=== PATIENT | female | born 1985 | race Caucasian/White ===

== ENCOUNTER 2017-06-03 09:05 | Inpatient (IN) | payer SELFPAY ==
[2017-06-03 09:44] VITALS: BMI 31.1
--- NOTE | 2017-06-03 13:11 | HP ---
CIWA Score - CIWA Score Nausea/Vomitin-Int. Nausea w/Dry Heave Muscle Tremors: 2 Anxiety: 4-Mod. Anxious/Guarded Agitation: 4-Moderately Restless Paroxysmal Sweats: 1-Minimal Palms Moist Orientation: 0-Oriented Tacttile Disturbances: 3-Moderate Itch/Numb/Burn Auditory Disturbances: 0-None Visual Disturbances: 0-None Headache: 2-Mild CIWA-Ar Total Score: 20 Admission ROS BHS - HPI Chief Complaint: WITHDRAWAL SX FROM ALCOHOL Allergies/Adverse Reactions: Allergies Allergy/AdvReac Type Severity Reaction Status Date / Time No Known Allergies Allergy Verified 06/03/17 10:36 History of Present Illness: 32 Y/O FEMALE WITH A HX OF ALCOHOL AND COCAINE DEPENDENCE SEEKING DETOX [place]. FIRST TIME HERE. Exam Limitations: No Limitations - Ebola screening Have you traveled outside of the country in the last 21 days: No Have you had contact with anyone from an Ebola affected area: No Have you been sick,other than usual withdrawal symptoms: No - Review of Systems Constitutional: Chills, Loss of Appetite, Night Sweats EENT: reports: Nose Congestion GI: reports: Constipated, Diarrhea, Nausea, Poor Appetite, Poor Fluid Intake, Vomiting : reports: No Symptoms Reported Musculoskeletal: reports: No Symptoms Reported Integumentary: reports: No Symptoms Reported Neuro: reports: Headache, Tremors, Dizziness Endocrine: reports: No Symptoms Reported Hematology: reports: No Symptoms Reported Psychiatric: reports: Orientated x3, Anxious, Depressed Other Systems: Reviewed and Negative Patient History - Patient Medical History Hx Anemia: No Hx Asthma: Yes (On Albuterol inhaler) Hx Hypertension: Yes (NEVER ON BP MED) Hx Hypercholesterolemia: No HX Cerebrovascular Accident: No Hx Seizures: No Hx Diabetes: Yes (Gestational diabetes) Hx Gastrointestinal Disorders: Yes (Gallstones) Hx Genitourinary Disorders: No Hx Sexually Transmitted Disorders: No Hx Renal Disease (ESRD): No Hx Thyroid Disease: No Hx Human Immunodeficiency Virus (HIV): No (NEGATIVE HX) Hx Hepatitis C: No Hx Depression: Yes (NOT CURRENTLY TAKING MED) Hx Suicide Attempt: No (DENIES) - Patient Surgical History Past Surgical History: No Hx Neurologic Surgery: No Hx Cataract Extraction: No Hx Cardiac Surgery: No Hx Lung Surgery: No Hx Breast Surgery: No Hx Breast Biopsy: No Hx Abdominal Surgery: No Hx Appendectomy: No Hx Cholecystectomy: Yes (GALLBLADDER TAKEN OUT 2011) Hx Genitourinary Surgery: No Hx Section: No Hx Orthopedic Surgery: No Hx Hysterectomy: No Anesthesia Reaction: No - PPD History Previous Implant?: Yes Documented Results: Negative w/o proof - Reproductive History Patient is a Female of Child Bearing Age (11 -55 yrs old): Yes Last Menstrual Period: 04/25/17 Patient : No - Smoking Cessation Smoking history: Current every day smoker Aproximately how many cigarettes per day: 10 Hx Chewing Tobacco Use: No Initiated information on smoking cessation: Yes 'Breaking Loose' booklet given: 06/03/17 - Substance & Tx. History Hx Alcohol Use: Yes (BEER/LOQUOR) Hx Substance Use: Yes (COCAINE) Substance Use Type: Alcohol, Cocaine Hx Substance Use Treatment: No (NEVER BEEN IN TREATMENT) - Substances Abused Alcohol Route: Oral Frequency: Daily Amount used: Vodka 3 pints, Beer 2 6pks Age of first use: 10 Date of Last Use: 06/02/17 Cocaine Route: Inhalation Frequency: 1-2 times per week Amount used: $200 Age of first use: 17 Date of Last Use: 06/02/17 Family Disease History - Family Disease History Family Disease History: Other: Father ( FROM DRUG OVERDOSE.), Mother ( HTN) Admission Physical Exam [facility] - Vital Signs Vital Signs: Vital Signs - 24 hr 06/03/17 09:41 Temperature 97.3 F L Pulse Rate 76 Respiratory 20 Rate Blood Pressure 171/118 - Physical General Appearance: Yes: Appropriately Dressed, Moderate Distress, Irritable, Anxious HEENTM: Yes: EOMI, Normocephalic, JOSE, Pharynx Normal Respiratory: Yes: Chest Non-Tender, Lungs Clear, Normal Breath Sounds, No Respiratory Distress Neck: Yes: No masses,lesions,Nodules, Supple, Trachea in good position Breast: Yes: Breast Exam Deferred Cardiology: Yes: Regular Rhythm, Regular Rate, S1, S2 Abdominal: Yes: Normal Bowel Sounds, Non Tender, Flat Genitourinary: Yes: Other (N/C) Back: Yes: Within Normal Limits Musculoskeletal: Yes: full range of Motion, Gait Steady Extremities: Yes: Normal Range of Motion, Non-Tender Neurological: Yes: 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 NML intact, Fully Oriented, Alert, Motor Strength 5/5 Integumentary: Yes: Dry, Warm Lymphatic: Yes: Within Normal Limits - Diagnostic (1) Alcohol dependence with uncomplicated withdrawal Current Visit: Yes Status: Acute (2) Cocaine dependence, uncomplicated Current Visit: Yes Status: Acute (3) History of asthma Current Visit: Yes Status: Chronic (4) Hypertension Current Visit: Yes Status: Chronic Qualifiers: Hypertension type: unspecified Qualified Code(s): I10 - Essential (primary ) hypertension Comment: NO CURRENT MEDS (5) Hx of gestational diabetes mellitus, not currently Current Visit: Yes Status: Resolved Cleared for Admission [facility] - Detox or Rehab [facility] Level of Care: Medically Managed Detox Regimen/Protocol: Librium [facility] Breath Alcohol Content Breath Alcohol Content: 0 Urine Pregancy Test - Result Urine Test Results: Negative- NO Line Present Urine Drug Screen - Results Drug Screen Negative: No Urine Drug Screen Results: THC-Marijuana, KANNAN-Cocaine, BZO-Benzodiazepines
[2017-06-03] MEDS ORDERED: LOPERAMIDE HCL 2 MG CAPSULE PO PRN (13:26)
[2017-06-03] MEDS ORDERED: ACETAMINOPHEN 325 MG TABLET (FP) PO PRN (13:26)
[2017-06-03] MEDS ORDERED: NICOTINE POLACRILEX 2 MG GUM BUC PRN (13:26)
[2017-06-03] MEDS ORDERED: P-EPHED 60MG/TRIPROLIDI 2.5MG TABLET PO PRN (13:26)
[2017-06-03] MEDS ORDERED: guaiFENesin/D-METHORPHAN HB 10 ML UNIT-DOSE CUPS PO PRN (13:26)
[2017-06-03] MEDS ORDERED: IBUPROFEN 400 MG TABLET (FP) PO PRN (13:26)
[2017-06-03] MEDS ORDERED: MAG HYDROX/AL HYDROX/SIMETH 30 ML UNIT-DOSE CUP PO PRN (13:26)
[2017-06-03] MEDS ORDERED: MAGNESIUM HYDROX 2400MG/30ML ORAL SUSPENSION 30 ML CUP PO PRN (13:26)
[2017-06-03] MEDS ORDERED: MAGNESIUM CITRATE 300 ML BOTTLE PO PRN (13:26)
[2017-06-03] MEDS ORDERED: MENTHOL/PHENOL 1 EACH UD MM PRN (13:26)
[2017-06-03] MEDS ORDERED: cloNIDine HCL 0.1 MG TABLET PO ONE (14:00)
[2017-06-03] MEDS ORDERED: chlordiazePOXIDE HCL 25 MG CAPSULE PO ONE (14:00)
[2017-06-03] MEDS: NICOTINE 14 MG/24 HOURS TOPICAL PATCH TD SCH (14:14)
--- NOTE | 2017-06-03 16:33 | CONSULT ---
[facility] Psychiatric Consult - Data Date of interview: 06/03/17 Admission source: [facility] Identifying data: Pt. is a 32 year old female, single, mother of one, and currently unemployed. This is patient's first admission to [facility]. Pt. admitted to for alcohol and cocaine dependence. Substance Abuse History: Following information confirmed with Ms. Delgado: Smoking Cessation. Smoking history: Current every day smoker. Aproximately how many cigarettes per day: 10. Hx Chewing Tobacco Use: No. Initiated information on smoking cessation: Yes. 'Breaking Loose' booklet given: . - Substance & Tx. History. Hx Alcohol Use: Yes (BEER/LOQUOR). Hx Substance Use: Yes (COCAINE). Substance Use Type: Alcohol, Cocaine. Hx Substance Use Treatment: No (NEVER BEEN IN TREATMENT). - Substances Abused. * * Alcohol. Route: Oral. Frequency: Daily. Amount used: Vodka 3 pints, Beer 2 6pks. Age of first use: 10. Date of Last Use: 06/02/17. Cocaine. Route: Inhalation. Frequency: 1-2 times per week. Amount used: $200. Age of first use: 17. Date of Last Use: 06/02/17 Medical History: Asthma, hypertension, Diabetes (gestational diabetes) Psychiatric History: Pt. denies h/o psychiatric hospitalization. Reports multiple failed trials of antidepressants. States in 2016 her PCP prescribed her wellbutrin and effexor but did not find medications effective. In 2017, patient saw an outpatient psychiatrist who prescribed her paxil 20mg but patient was medication noncompliant. Currently denies OPC and is refusing to restart paxil. Pt. reports a diagnosis of adjustment disorder. Pt. denies h/o suicide attempt. Physical/Sexual Abuse/Trauma History: Denies. Mental Status Exam - Mental Status Exam Alert and Oriented to: Time, Place, Person Cognitive Function: Good Patient Appearance: Well Groomed Mood: Euthymic Affect: Mood Congruent Patient Behavior: Appropriate, Cooperative Speech Pattern: Appropriate Voice Loudness: Normal Thought Process: Goal Oriented Thought Disorder: Not Present Hallucinations: Denies Suicidal Ideation: Denies Homicidal Ideation: Denies Insight/Judgement: Poor Sleep: Poorly Appetite: Fair Muscle strength/Tone: Normal Gait/Station: Normal Psychiatric Findings - Problem List ([place] 1, 2,3) (1) Insomnia Current Visit: Yes Status: Acute (2) Alcohol dependence with uncomplicated withdrawal Current Visit: Yes Status: Acute (3) Cocaine dependence, uncomplicated Current Visit: Yes Status: Acute - Initial Treatment Plan Initial Treatment Plan: Psychoeducation provided. Detoxification in progress. Ambien 10mg qhs prn ordered. Pt. reports favorable effect from previously taking ambien. Verbal consent given. Benefits and side effects (discussed). Will continue to monitor patient.
[2017-06-03] MEDS: chlordiazePOXIDE HCL 25 MG CAPSULE PO SCH ×2 (17:11→22:16)
[2017-06-03] MEDS ORDERED: ALBUTEROL SO4 0.083% IH SOL 2.5 MG/3 ML VIAL.NEB. NEB PRN (17:38)
[2017-06-03] MEDS: THIAMINE HCL 100 MG TABLET (FP) PO SCH (22:15)
[2017-06-03] MEDS: ZOLPIDEM TARTRATE 10 MG TABLET (PARK CARE ONLY) PO PRN (22:15)
[2017-06-03] MEDS: ALBUTEROL SO4 18 GM HFA INHALER IH PRN (22:17)
[2017-06-03 23:55] LABS: URINE APPEARANCE SLCLOUDY; URINE BILIRUBIN NEGATIVE (NEGATIVE); URINE BLOOD NEGATIVE (NEGATIVE); URINE COLOR AMBER; URINE GLUCOSE (UA) NEGATIVE (NEGATIVE); URINE KETONE TRACE (NEGATIVE); URINE LEUK ESTERASE NEGATIVE (NEGATIVE); URINE NITRITE NEGATIVE (NEGATIVE); URINE PROTEIN NEGATIVE (NEGATIVE)
[2017-06-04] MEDS: chlordiazePOXIDE HCL 25 MG CAPSULE PO SCH ×4 (06:03→22:22)
[2017-06-04] MEDS: ALBUTEROL SO4 18 GM HFA INHALER IH PRN ×3 (06:05→22:22)
--- NOTE | 2017-06-04 07:53 | EKG ---
Test Reason : Blood Pressure : / mmHG Vent. Rate : 070 BPM Atrial Rate : 070 BPM P-R Int : 130 ms QRS Dur : 088 ms QT Int : 426 ms P-R-T Axes : 017 058 041 degrees QTc Int : 460 ms NORMAL SINUS RHYTHM WITH SINUS ARRHYTHMIA NORMAL ECG WHEN COMPARED WITH ECG OF 23-NOV-2006 08:38, NO SIGNIFICANT CHANGE WAS FOUND Confirmed by CATE LORENZO, LAURA ([id number]) on 06/04/2017 7:53:33 AM Referred By: Confirmed By:LAURA ESPOSITO MD
[2017-06-04 10:24] LABS: CHLORIDE 101 mmol/L (98-107); POTASSIUM 3.5 mmol/L (3.5-5.1); SODIUM 140 mmol/L (136-145)
[2017-06-04 10:34] LABS: HEMATOCRIT 39.2 % (32.4-45.2); HEMOGLOBIN 12.6 GM/dL (10.7-15.3); MCH 30.1 pg (25.7-33.7); MEAN CELL VOLUME 93.9 fl (80-96); MEAN PLT VOLUME 7.6 fl (7.5-11.1); PLATELET COUNT 335 K/MM3 (134-434); RBC 4.18 M/mm3 (3.60-5.2); RDW 14.9 % (11.6-15.6); WHITE BLOOD COUNT 8.4 K/mm3 (4.0-10.0)
[2017-06-04 11:24] LABS: ALBUMIN 3.5 g/dl (3.4-5.0); ALK PHOS 98 U/L (45-117); ANION GAP 11 (8-16); BILIRUBIN,TOTAL 0.6 mg/dL (0.2-1.0); BLOOD UREA NITROGEN 8 mg/dL (7-18); CALCIUM 9.3 mg/dL (8.5-10.1); CO2 28 mmol/L (21-32); CREATININE 0.9 mg/dL (0.55-1.02); GLUCOSE,RANDOM 86 mg/dL (74-106); SGOT/AST 50 U/L (15-37); SGPT/ALT 69 U/L (12-78); TOT PROT 7.4 g/dl (6.4-8.2)
[2017-06-04] MEDS: PRENATAL VITAMINS W/ FOLIC ACID TABLET (FP) PO SCH (11:42)
[2017-06-04] MEDS: NICOTINE 14 MG/24 HOURS TOPICAL PATCH TD SCH (11:51)
--- NOTE | 2017-06-04 15:50 | PN ---
S CIWA - CIWA Score Nausea/Vomitin Muscle Tremors: 2 Anxiety: 2 Agitation: 2 Paroxysmal Sweats: 3 Orientation: 0-Oriented Tacttile Disturbances: 2-Mild Itch/Numbness/Burn Auditory Disturbances: 0-None Visual Disturbances: 0-None Headache: 0-None Present CIWA-Ar Total Score: 14 S Progress Note (SOAP) Subjective: IS, shakes, upset stomach,nausea Objective: 06/04/17 15:49 Vital Signs Temperature 97.7 F 06/04/17 13:22 Pulse Rate 90 06/04/17 13:22 Respiratory Rate 18 06/04/17 13:22 Blood Pressure 140/70 06/04/17 14:12 O2 Sat by Pulse Oximetry (%) Vital Signs Temperature 97.7 F 06/04/17 13:22 Pulse Rate 90 06/04/17 13:22 Respiratory Rate 18 06/04/17 13:22 Blood Pressure 140/70 06/04/17 14:12 O2 Sat by Pulse Oximetry (%) Laboratory Tests 06/03/17 06/04/17 06/04/17 20:45 05:45 05:45 WBC 8.4 RBC 4.18 Hgb 12.6 Hct 39.2 MCV 93.9 MCH 30.1 MCHC 32.0 RDW 14.9 D Plt Count 335 MPV 7.6 Sodium 140 Potassium 3.5 Chloride 101 Carbon Dioxide 28 Anion Gap 11 BUN 8 Creatinine 0.9 Creat Clearance w eGFR > 60 Random Glucose 86 Calcium 9.3 Total Bilirubin 0.6 AST 50 H ALT 69 Alkaline Phosphatase 98 Total Protein 7.4 Albumin 3.5 Urine Color Bernarda Urine Appearance Slcloudy Urine pH 5.0 Ur Specific [place] 1.025 Urine Protein Negative Urine Glucose (UA) Negative Urine Ketones Trace H Urine Blood Negative Urine Nitrite Negative Urine Bilirubin Negative Urine Urobilinogen 2.0 H Ur Leukocyte Esterase Negative RPR Titer 06/04/17 05:45 WBC RBC Hgb Hct MCV MCH MCHC RDW Plt Count MPV Sodium Potassium Chloride Carbon Dioxide Anion Gap BUN Creatinine Creat Clearance w eGFR Random Glucose Calcium Total Bilirubin AST ALT Alkaline Phosphatase Total Protein Albumin Urine Color Urine Appearance Urine pH Ur Specific [place] Urine Protein Urine Glucose (UA) Urine Ketones Urine Blood Urine Nitrite Urine Bilirubin Urine Urobilinogen Ur Leukocyte Esterase RPR Titer Nonreactive pt aox3 in nad ambulating Assessment: 06/04/17 15:49 withdrawal sx's Plan: cont detox increase fluids [place] prn
[2017-06-04] MEDS: THIAMINE HCL 100 MG TABLET (FP) PO SCH (22:22)
[2017-06-04] MEDS: hydrOXYzine PAMOATE 50 MG CAPSULE (FP) PO PRN (22:22)
[2017-06-04] MEDS: ZOLPIDEM TARTRATE 10 MG TABLET (PARK CARE ONLY) PO PRN (22:24)
[2017-06-05] MEDS: chlordiazePOXIDE HCL 25 MG CAPSULE PO SCH ×2 (05:58→11:02)
[2017-06-05] MEDS: NICOTINE 14 MG/24 HOURS TOPICAL PATCH TD SCH (11:02)
[2017-06-05] MEDS: PRENATAL VITAMINS W/ FOLIC ACID TABLET (FP) PO SCH (11:02)
--- NOTE | 2017-06-05 11:48 | PN ---
S CIWA - CIWA Score Nausea/Vomitin-No Nausea/No Vomiting Muscle Tremors: 3 Anxiety: 3 Agitation: 2 Paroxysmal Sweats: 1-Minimal Palms Moist Orientation: 0-Oriented Tacttile Disturbances: 0-None Auditory Disturbances: 0-None Visual Disturbances: 0-None Headache: 0-None Present CIWA-Ar Total Score: 9 BHS Progress Note (SOAP) Subjective: sweat anxiety tremor Objective: 06/05/17 11:47 Vital Signs Temperature 97.5 F L 06/05/17 09:50 Pulse Rate 74 06/05/17 09:50 Respiratory Rate 18 06/05/17 09:50 Blood Pressure 143/81 06/05/17 09:50 O2 Sat by Pulse Oximetry (%) Laboratory Last Values WBC 8.4 K/mm3 (4.0-10.0) 06/04/17 05:45 RBC 4.18 M/mm3 (3.60-5.2) 06/04/17 05:45 Hgb 12.6 GM/dL (10.7-15.3) 06/04/17 05:45 Hct 39.2 % (32.4-45.2) 06/04/17 05:45 MCV 93.9 fl (80-96) 06/04/17 05:45 MCH 30.1 pg (25.7-33.7) 06/04/17 05:45 MCHC 32.0 g/dl (32.0-36.0) 06/04/17 05:45 RDW 14.9 % (11.6-15.6) D 06/04/17 05:45 Plt Count 335 K/MM3 (134-434) 06/04/17 05:45 MPV 7.6 fl (7.5-11.1) 06/04/17 05:45 Sodium 140 mmol/L (136-145) 06/04/17 05:45 Potassium 3.5 mmol/L (3.5-5.1) 06/04/17 05:45 Chloride 101 mmol/L (98-107) 06/04/17 05:45 Carbon Dioxide 28 mmol/L (21-32) 06/04/17 05:45 Anion Gap 11 (8-16) 06/04/17 05:45 BUN 8 mg/dL (7-18) 06/04/17 05:45 Creatinine 0.9 mg/dL (0.55-1.02) 06/04/17 05:45 Creat Clearance w eGFR > 60 (>60) 06/04/17 05:45 POC Glucometer 95 UNITS (80-120) 06/04/17 16:56 Random Glucose 86 mg/dL (74-106) 06/04/17 05:45 Calcium 9.3 mg/dL (8.5-10.1) 06/04/17 05:45 Total Bilirubin 0.6 mg/dL (0.2-1.0) 06/04/17 05:45 AST 50 U/L (15-37) H 06/04/17 05:45 ALT 69 U/L (12-78) 06/04/17 05:45 Alkaline Phosphatase 98 U/L (45-117) 06/04/17 05:45 Total Protein 7.4 g/dl (6.4-8.2) 06/04/17 05:45 Albumin 3.5 g/dl (3.4-5.0) 06/04/17 05:45 Urine Color Bernarda 06/03/17 20:45 Urine Appearance Slcloudy 06/03/17 20:45 Urine pH 5.0 (5.0-8.0) 06/03/17 20:45 Ur Specific [place] 1.025 (1.001-1.035) 06/03/17 20:45 Urine Protein Negative (NEGATIVE) 06/03/17 20:45 Urine Glucose (UA) Negative (NEGATIVE) 06/03/17 20:45 Urine Ketones Trace (NEGATIVE) H 06/03/17 20:45 Urine Blood Negative (NEGATIVE) 06/03/17 20:45 Urine Nitrite Negative (NEGATIVE) 06/03/17 20:45 Urine Bilirubin Negative (NEGATIVE) 06/03/17 20:45 Urine Urobilinogen 2.0 mg/dL (0.2-1.0) H 06/03/17 20:45 Ur Leukocyte Esterase Negative (NEGATIVE) 06/03/17 20:45 RPR Titer Nonreactive (NONREACTIVE) 06/04/17 05:45 lab noted Assessment: 06/05/17 11:47 withdrawal sx Plan: continue detox
[2017-06-05] MEDS: chlordiazePOXIDE HCL 25 MG CAPSULE PO PRN (15:23)
[2017-06-05] MEDS: amLODIPine BESYLATE 5 MG TABLET (FP) PO SCH (15:23)
[2017-06-05] MEDS: chlordiazePOXIDE 5 MG CAPSULE PO SCH ×2 (17:03→22:24)
[2017-06-05] MEDS: ALBUTEROL SO4 18 GM HFA INHALER IH PRN (22:24)
[2017-06-05] MEDS: hydrOXYzine PAMOATE 50 MG CAPSULE (FP) PO PRN (22:24)
[2017-06-05] MEDS: ZOLPIDEM TARTRATE 10 MG TABLET (PARK CARE ONLY) PO PRN (22:24)
[2017-06-05] MEDS: THIAMINE HCL 100 MG TABLET (FP) PO SCH (22:24)
[2017-06-06] MEDS: chlordiazePOXIDE 5 MG CAPSULE PO SCH ×2 (05:23→10:49)
[2017-06-06] MEDS: PRENATAL VITAMINS W/ FOLIC ACID TABLET (FP) PO SCH (10:49)
[2017-06-06] MEDS: amLODIPine BESYLATE 5 MG TABLET (FP) PO SCH (10:49)
[2017-06-06] MEDS: NICOTINE 14 MG/24 HOURS TOPICAL PATCH TD SCH (10:49)
[2017-06-06] MEDS: hydrOXYzine PAMOATE 50 MG CAPSULE (FP) PO PRN ×3 (10:52→19:45)
[2017-06-06] MEDS: ALBUTEROL SO4 18 GM HFA INHALER IH PRN ×2 (10:52→22:33)
--- NOTE | 2017-06-06 11:03 | PN ---
BHS Progress Note (SOAP) Subjective: Sweating,interrupted sleep,restless Objective: 06/06/17 11:02 Vital Signs - 8 hr 06/06/17 06/06/17 06/06/17 03:30 07:41 09:43 Temperature 98.1 F 98.2 F Pulse Rate 75 81 Respiratory 18 18 18 Rate Blood Pressure 130/76 145/93 Laboratory Tests 06/03/17 06/04/17 06/04/17 20:45 05:45 05:45 WBC 8.4 RBC 4.18 Hgb 12.6 Hct 39.2 MCV 93.9 MCH 30.1 MCHC 32.0 RDW 14.9 D Plt Count 335 MPV 7.6 Sodium 140 Potassium 3.5 Chloride 101 Carbon Dioxide 28 Anion Gap 11 BUN 8 Creatinine 0.9 Creat Clearance w eGFR > 60 POC Glucometer Random Glucose 86 Calcium 9.3 Total Bilirubin 0.6 AST 50 H ALT 69 Alkaline Phosphatase 98 Total Protein 7.4 Albumin 3.5 Urine Color Bernarda Urine Appearance Slcloudy Urine pH 5.0 Ur Specific [place] 1.025 Urine Protein Negative Urine Glucose (UA) Negative Urine Ketones Trace H Urine Blood Negative Urine Nitrite Negative Urine Bilirubin Negative Urine Urobilinogen 2.0 H Ur Leukocyte Esterase Negative RPR Titer 06/04/17 06/04/17 05:45 16:56 WBC RBC Hgb Hct MCV MCH MCHC RDW Plt Count MPV Sodium Potassium Chloride Carbon Dioxide Anion Gap BUN Creatinine Creat Clearance w eGFR POC Glucometer 95 Random Glucose Calcium Total Bilirubin AST ALT Alkaline Phosphatase Total Protein Albumin Urine Color Urine Appearance Urine pH Ur Specific [place] Urine Protein Urine Glucose (UA) Urine Ketones Urine Blood Urine Nitrite Urine Bilirubin Urine Urobilinogen Ur Leukocyte Esterase RPR Titer Nonreactive labs noted Assessment: 06/06/17 11:02 Withdrawal sx. Plan: Continue detox
[2017-06-06] MEDS: chlordiazePOXIDE HCL 25 MG CAPSULE PO PRN (12:41)
[2017-06-06] MEDS: chlordiazePOXIDE HCL 10 MG CAPSULE PO SCH ×2 (18:20→22:32)
[2017-06-06] MEDS: THIAMINE HCL 100 MG TABLET (FP) PO SCH (22:32)
[2017-06-06] MEDS: ZOLPIDEM TARTRATE 10 MG TABLET (PARK CARE ONLY) PO PRN (22:32)
[2017-06-07] MEDS: chlordiazePOXIDE HCL 10 MG CAPSULE PO SCH (05:57)
[2017-06-07] MEDS: hydrOXYzine PAMOATE 50 MG CAPSULE (FP) PO PRN (05:59)
[2017-06-07 06:55] VITALS: BP 136/77; PULSE 70; TEMP 98.1
--- NOTE | 2017-06-07 14:41 | DS ---
[facility] Detox Discharge Summary Admission Date: 06/03/17 Discharge Date: 06/07/17 - History Present History: Alcohol Dependence, Cocaine Dependence Pertinent Past History: HTN - Physical Exam Results Vital Signs: Vital Signs Temperature 98.1 F 06/07/17 06:00 Pulse Rate 70 06/07/17 06:00 Respiratory Rate 18 06/07/17 06:00 Blood Pressure 136/77 06/07/17 06:00 O2 Sat by Pulse Oximetry (%) Pertinent Admission Physical Exam Findings: withdrawal sx. Laboratory Last Values WBC 8.4 K/mm3 (4.0-10.0) 06/04/17 05:45 RBC 4.18 M/mm3 (3.60-5.2) 06/04/17 05:45 Hgb 12.6 GM/dL (10.7-15.3) 06/04/17 05:45 Hct 39.2 % (32.4-45.2) 06/04/17 05:45 MCV 93.9 fl (80-96) 06/04/17 05:45 MCH 30.1 pg (25.7-33.7) 06/04/17 05:45 MCHC 32.0 g/dl (32.0-36.0) 06/04/17 05:45 RDW 14.9 % (11.6-15.6) D 06/04/17 05:45 Plt Count 335 K/MM3 (134-434) 06/04/17 05:45 MPV 7.6 fl (7.5-11.1) 06/04/17 05:45 Sodium 140 mmol/L (136-145) 06/04/17 05:45 Potassium 3.5 mmol/L (3.5-5.1) 06/04/17 05:45 Chloride 101 mmol/L (98-107) 06/04/17 05:45 Carbon Dioxide 28 mmol/L (21-32) 06/04/17 05:45 Anion Gap 11 (8-16) 06/04/17 05:45 BUN 8 mg/dL (7-18) 06/04/17 05:45 Creatinine 0.9 mg/dL (0.55-1.02) 06/04/17 05:45 Creat Clearance w eGFR > 60 (>60) 06/04/17 05:45 POC Glucometer 121 UNITS (80-120) 06/06/17 16:57 Random Glucose 86 mg/dL (74-106) 06/04/17 05:45 Calcium 9.3 mg/dL (8.5-10.1) 06/04/17 05:45 Total Bilirubin 0.6 mg/dL (0.2-1.0) 06/04/17 05:45 AST 50 U/L (15-37) H 06/04/17 05:45 ALT 69 U/L (12-78) 06/04/17 05:45 Alkaline Phosphatase 98 U/L (45-117) 06/04/17 05:45 Total Protein 7.4 g/dl (6.4-8.2) 06/04/17 05:45 Albumin 3.5 g/dl (3.4-5.0) 06/04/17 05:45 Urine Color Bernarda 06/03/17 20:45 Urine Appearance Slcloudy 06/03/17 20:45 Urine pH 5.0 (5.0-8.0) 06/03/17 20:45 Ur Specific [place] 1.025 (1.001-1.035) 06/03/17 20:45 Urine Protein Negative (NEGATIVE) 06/03/17 20:45 Urine Glucose (UA) Negative (NEGATIVE) 06/03/17 20:45 Urine Ketones Trace (NEGATIVE) H 06/03/17 20:45 Urine Blood Negative (NEGATIVE) 06/03/17 20:45 Urine Nitrite Negative (NEGATIVE) 06/03/17 20:45 Urine Bilirubin Negative (NEGATIVE) 06/03/17 20:45 Urine Urobilinogen 2.0 mg/dL (0.2-1.0) H 06/03/17 20:45 Ur Leukocyte Esterase Negative (NEGATIVE) 06/03/17 20:45 RPR Titer Nonreactive (NONREACTIVE) 06/04/17 05:45 labs noted - Treatment Hospital Course: Detox Protocol Followed, Detoxed Safely, Responded well, Discharged Condition Good, Rehab Referral Accepted Patient has Accepted a Rehab Referral to: [facility] - Medication Discharge Medications: Ambulatory Orders Amox-Tr/K Cl [Augmentin 500-125mg Tablet -] 1 tab PO TID #21 tablet 01/15/13 Albuterol Sulfate Inhaler - [Ventolin Hfa Inhaler -] 1 - 2 inh PO Q4H 06/03/17 Clonazepam [KlonoPIN -] 0.5 mg PO DAILY PRN 06/03/17 Paroxetine HCl [Paxil -] 20 mg PO DAILY 06/03/17 - Diagnosis (1) Alcohol dependence with uncomplicated withdrawal Status: Acute (2) Cocaine dependence, uncomplicated Status: Acute (3) History of asthma Status: Chronic (4) Hypertension Status: Chronic Qualifiers: Hypertension type: unspecified Qualified Code(s): I10 - Essential (primary ) hypertension - AMA Did Patient Leave Against Medical Advice: No
== END 2017-06-07 07:15 | disposition home or self-care (01) | DRG 774 ==
LOC: YASAS 09:05 → Y6N 13:03
PROVIDERS: ADMIT Internal Medicine; ATTEND Internal Medicine
PROC: HZ2ZZZZ Detoxification Services for Substance Abuse Treatment (ICD-10-PCS; principal; 2017-06-03)
DX: F10.230 Alcohol dependence with withdrawal, uncomplicated (principal); F14.20 Cocaine dependence, uncomplicated; F17.210 Nicotine dependence, cigarettes, uncomplicated; I10 Essential (primary) hypertension; J45.909 Unspecified asthma, uncomplicated; G47.00 Insomnia, unspecified
CPT/HCPCS: 36415; 80053; 81003; 82962; 85027; 86593; 93005; 93010; J0735

== ENCOUNTER 2017-07-09 12:15 | Inpatient (IN) | payer OTHER ==
[2017-07-09 13:55] VITALS: BMI 28.3
--- NOTE | 2017-07-09 14:52 | HP ---
CIWA Score - CIWA Score Nausea/Vomitin Muscle Tremors: 3 Anxiety: 3 Agitation: 3 Paroxysmal Sweats: 2 Orientation: 0-Oriented Tacttile Disturbances: 2-Mild Itch/Numbness/Burn Auditory Disturbances: 2-Mild Harshness/Frighten Visual Disturbances: 0-None Headache: 2-Mild CIWA-Ar Total Score: 20 Admission ROS BHS - HPI Chief Complaint: I NEED HELP TO STOP DRINKING ALCOHOL,COCAINE AND MARIJUANA Allergies/Adverse Reactions: Allergies Allergy/AdvReac Type Severity Reaction Status Date / Time No Known Allergies Allergy Verified 07/09/17 14:51 History of Present Illness: THIS 32 YEARS OLD FEMALE WITH ALCOHOL,COCAINE,MARIJUANA DEPENDENCE,SEEKING DETOX ,WITHDRAWAL SYMPTOM LAST DETOX [facility] 06/03/17 TO 06/07/17 HISTORY OF ASTHMA,BIPOLAR DISORDER,NICOTINE DEPENDENCE, NO SIGNIFICANT PERIOD OF SOBRIETY - Ebola screening Have you traveled outside of the country in the last 21 days: No Have you had contact with anyone from an Ebola affected area: No Have you been sick,other than usual withdrawal symptoms: No - Review of Systems Constitutional: Loss of Appetite, Malaise, Night Sweats, Changes in sleep, Weakness EENT: reports: Nose Congestion Respiratory: reports: No Symptoms reported Cardiac: reports: Palpitations GI: reports: Diarrhea, Nausea, Abdominal cramping : reports: No Symptoms Reported Musculoskeletal: reports: Back Pain, Muscle Pain Integumentary: reports: Dryness Neuro: reports: Headache, Tremors Endocrine: reports: No Symptoms Reported Hematology: reports: No Symptoms Reported Psychiatric: reports: No Sypmtoms Reported, Judgement Intact, Mood/Affect Appropiate, other (BIPOLAR DISORDER) Patient History - Patient Medical History Hx Anemia: No Hx Asthma: Yes (On Albuterol inhaler) Hx Hypertension: Yes (NEVER ON BP MED) Hx Hypercholesterolemia: No HX Cerebrovascular Accident: No Hx Seizures: No Hx Diabetes: Yes (Gestational diabetes) Hx Gastrointestinal Disorders: Yes (Gallstones) Hx Genitourinary Disorders: No Hx Sexually Transmitted Disorders: No Hx Renal Disease (ESRD): No Hx Thyroid Disease: No Hx Human Immunodeficiency Virus (HIV): No (NEGATIVE HX) Hx Hepatitis C: No Hx Depression: Yes (NOT CURRENTLY TAKING MED) Hx Suicide Attempt: No (DENIES) Hx Bipolar Disorder: Yes Hx Schizophrenia: No - Patient Surgical History Past Surgical History: No Hx Neurologic Surgery: No Hx Cataract Extraction: No Hx Cardiac Surgery: No Hx Lung Surgery: No Hx Breast Surgery: No Hx Breast Biopsy: No Hx Abdominal Surgery: No Hx Appendectomy: No Hx Cholecystectomy: Yes (GALLBLADDER TAKEN OUT 2011) Hx Genitourinary Surgery: No Hx Section: No Hx Orthopedic Surgery: No Hx Hysterectomy: No Anesthesia Reaction: No - PPD History Documented Results: Negative w/proof Implanted On Prior [facility] Admission?: Yes Date: 06/05/17 Results: 0 MM PPD to be Administered?: No - Reproductive History Last Menstrual Period: 04/25/17 Patient : No - Smoking Cessation Smoking history: Current every day smoker Have you smoked in the past 12 months: Yes Aproximately how many cigarettes per day: 10 Hx Chewing Tobacco Use: No Initiated information on smoking cessation: Yes 'Breaking Loose' booklet given: 07/09/17 - Substance & Tx. History Hx Alcohol Use: Yes Hx Substance Use: Yes Substance Use Type: Alcohol, Cocaine, Marijuana Hx Substance Use Treatment: Yes ([facility] 06/03/17 TO 06/07/17) - Substances Abused Alcohol Route: Oral Frequency: Daily Amount used: 1-2 PINTS VODKA OR TEQUILLA Age of first use: 12 Date of Last Use: 07/09/17 Cocaine Route: Inhalation Frequency: Daily Amount used: $300 Age of first use: 18 Date of Last Use: 07/08/17 Marijuana/Hashish Route: Smoking Frequency: 1-2 times per week Amount used: 2 GRAMS Age of first use: 12 Date of Last Use: 07/06/17 Family Disease History - Family Disease History Family Disease History: Other: Father ( FROM DRUG OVERDOSE.), Mother ( HTN) Admission Physical Exam [facility] - Vital Signs Vital Signs: Vital Signs - 24 hr 07/09/17 13:54 Temperature 98.7 F Pulse Rate 114 H Respiratory 18 Rate Blood Pressure 158/100 - Physical General Appearance: Yes: Moderate Distress, Anxious HEENTM: Yes: Within Normal Limits, Normal ENT Inspection, JOSE, Pharynx Normal Respiratory: Yes: Lungs Clear, Normal Breath Sounds, No Respiratory Distress Neck: Yes: Within Normal Limits, Supple, Trachea in good position Breast: Yes: Breast Exam Deferred Cardiology: Yes: Tachycardia Abdominal: Yes: Within Normal Limits, Normal Bowel Sounds, Non Tender, Flat, Soft Genitourinary: Yes: Within Normal Limits Back: Yes: Muscle Spasm Musculoskeletal: Yes: Back pain, Muscle Pain Extremities: Yes: Tremors Neurological: 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: 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 NML intact, Alert, Motor Strength 5/5, Normal Mood /Affect Integumentary: Yes: Dry Lymphatic: Yes: Within Normal Limits - Diagnostic (1) Alcohol dependence with uncomplicated withdrawal Current Visit: No Status: Acute (2) Cocaine dependence, uncomplicated Current Visit: No Status: Acute (3) Insomnia Current Visit: No Status: Acute (4) History of asthma Current Visit: No Status: Chronic (5) Hypertension Current Visit: No Status: Chronic Qualifiers: Hypertension type: essential hypertension Qualified Code(s): I10 - Essential (primary) hypertension Comment: NO CURRENT MEDS Cleared for Admission [facility] - Detox or Rehab [facility] Level of Care: Medically Managed Detox Regimen/Protocol: Librium [facility] Breath Alcohol Content Breath Alcohol Content: 0.290 Urine Pregancy Test - Result Urine Test Results: Negative- NO Line Present Urine Drug Screen - Results Drug Screen Negative: No Urine Drug Screen Results: THC-Marijuana, KANNAN-Cocaine
[2017-07-09] MEDS ORDERED: chlordiazePOXIDE HCL 25 MG CAPSULE PO ONE (15:20)
[2017-07-09] MEDS ORDERED: MAG HYDROX/AL HYDROX/SIMETH 30 ML UNIT-DOSE CUP PO PRN (15:20)
[2017-07-09] MEDS ORDERED: MENTHOL/PHENOL 1 EACH UD MM PRN (15:20)
[2017-07-09] MEDS ORDERED: chlordiazePOXIDE HCL 25 MG CAPSULE PO PRN (15:20)
[2017-07-09] MEDS ORDERED: MAGNESIUM CITRATE 300 ML BOTTLE PO PRN (15:20)
[2017-07-09] MEDS ORDERED: P-EPHED 60MG/TRIPROLIDI 2.5MG TABLET PO PRN (15:20)
[2017-07-09] MEDS ORDERED: LOPERAMIDE HCL 2 MG CAPSULE PO PRN (15:20)
[2017-07-09] MEDS ORDERED: guaiFENesin/D-METHORPHAN HB 10 ML UNIT-DOSE CUPS PO PRN (15:20)
[2017-07-09] MEDS ORDERED: IBUPROFEN 400 MG TABLET (FP) PO PRN (15:20)
[2017-07-09] MEDS ORDERED: ACETAMINOPHEN 325 MG TABLET (FP) PO PRN (15:20)
[2017-07-09] MEDS ORDERED: MAGNESIUM HYDROX 2400MG/30ML ORAL SUSPENSION 30 ML CUP PO PRN (15:20)
[2017-07-09] MEDS: chlordiazePOXIDE HCL 25 MG CAPSULE PO SCH ×2 (18:32→22:16)
[2017-07-09] MEDS: THIAMINE HCL 100 MG TABLET (FP) PO SCH (22:16)
[2017-07-09 23:02] LABS: URINE APPEARANCE CLOUDY; URINE BILIRUBIN NEGATIVE (NEGATIVE); URINE BLOOD NEGATIVE (NEGATIVE); URINE COLOR YELLOW; URINE GLUCOSE (UA) NEGATIVE (NEGATIVE); URINE KETONE NEGATIVE (NEGATIVE); URINE LEUK ESTERASE TRACE (NEGATIVE); URINE NITRITE NEGATIVE (NEGATIVE)
[2017-07-09 23:07] LABS: URINE PROTEIN 1+ (NEGATIVE)
[2017-07-09 23:26] LABS: EPI CELLS MODERATE /HPF (FEW); URINE MUCUS RARE
[2017-07-10] MEDS: chlordiazePOXIDE HCL 25 MG CAPSULE PO SCH ×4 (05:51→22:29)
--- NOTE | 2017-07-10 09:47 | PN ---
S CIWA - CIWA Score Nausea/Vomitin Muscle Tremors: 3 Anxiety: 3 Agitation: 2 Paroxysmal Sweats: 1-Minimal Palms Moist Orientation: 0-Oriented Tacttile Disturbances: 1-Very Mild Itch/Numbness Auditory Disturbances: 1-Very Mild Visual Disturbances: 0-None Headache: 2-Mild CIWA-Ar Total Score: 16 BHS Progress Note (SOAP) Subjective: ALERT,IRRITABLE,ANXIOUS,INTERRUPTED SLEEP,TREMOR Objective: 07/10/17 09:45 Vital Signs Temperature 97.2 F L 07/10/17 09:18 Pulse Rate 71 07/10/17 09:18 Respiratory Rate 18 07/10/17 09:18 Blood Pressure 150/94 07/10/17 09:18 O2 Sat by Pulse Oximetry (%) EKG SINUS TACHYCARDIA 102/MIN Laboratory Last Values Urine Color Yellow 07/09/17 20:00 Urine Appearance Cloudy 07/09/17 20:00 Urine pH 5.0 (5.0-8.0) 07/09/17 20:00 Ur Specific [place] 1.015 (1.001-1.035) 07/09/17 20:00 Urine Protein 1+ (NEGATIVE) H 07/09/17 20:00 Urine Glucose (UA) Negative (NEGATIVE) 07/09/17 20:00 Urine Ketones Negative (NEGATIVE) 07/09/17 20:00 Urine Blood Negative (NEGATIVE) 07/09/17 20:00 Urine Nitrite Negative (NEGATIVE) 07/09/17 20:00 Urine Bilirubin Negative (NEGATIVE) 07/09/17 20:00 Urine Urobilinogen 2.0 mg/dL (0.2-1.0) H 07/09/17 20:00 Ur Leukocyte Esterase Trace (NEGATIVE) 07/09/17 20:00 Urine WBC (Auto) 4 /hpf (3-5) 07/09/17 20:00 Urine RBC (Auto) 1 /hpf (0-3) 07/09/17 20:00 Ur Epithelial Cells Moderate /HPF (FEW) 07/09/17 20:00 Urine Mucus Rare 07/09/17 20:00 LABS PENDING Assessment: 07/10/17 09:46 WITHDRAWAL SYMPTOM Plan: CONTINUE DETOX
[2017-07-10 10:23] LABS: HEMATOCRIT 38.6 % (32.4-45.2); HEMOGLOBIN 12.8 GM/dL (10.7-15.3); MCH 30.7 pg (25.7-33.7); MCHC 33.1 g/dl (32.0-36.0); MEAN CELL VOLUME 92.5 fl (80-96); MEAN PLT VOLUME 7.4 fl (7.5-11.1); PLATELET COUNT 222 K/MM3 (134-434); RBC 4.17 M/mm3 (3.60-5.2); WHITE BLOOD COUNT 6.6 K/mm3 (4.0-10.0)
[2017-07-10] MEDS: PRENATAL VITAMINS W/ FOLIC ACID TABLET (FP) PO SCH (10:25)
[2017-07-10] MEDS: BACITRACIN 0.9 GM PACKET TP SCH ×2 (10:26→22:29)
[2017-07-10] MEDS: QUEtiapine FUMARATE 50 MG TABLET PO SCH (10:27)
--- NOTE | 2017-07-10 10:36 | CONSULT ---
[facility] Psychiatric Consult - Data Date of interview: 07/10/17 Admission source: [facility] Identifying data: Pt. is a 32 year old single female, mother of one, unemployed , and waiting for acceptance for [facility]. This is one of multiple admissions for patient. Pt. admitted to for cocaine and alcohol dependence. Substance Abuse History: Following information confirmed with Ms. Delgado: Smoking Cessation. Smoking history: Current every day smoker. Have you smoked in the past 12 months: Yes. Aproximately how many cigarettes per day: 10. Hx Chewing Tobacco Use: No. Initiated information on smoking cessation: Yes. ' Breaking Loose' booklet given: 07/09/17. - Substance & Tx. History. Hx Alcohol Use: Yes. Hx Substance Use: Yes. Substance Use Type: Alcohol, Cocaine , Marijuana. Hx Substance Use Treatment: Yes ([facility] 06/03/17 TO 06/07/17). - Substances Abused. Alcohol. Route: Oral. Frequency: Daily. Amount used: 1 -2 [place] OR TEQU[place]A. Age of first use: 12. Date of Last Use: 07/09/17. Cocaine. Route: Inhalation. Frequency: Daily. Amount used: $300. Age of first use: 18. Date of Last Use: 07/08/17. Marijuana/Hashish. Route: Smoking. Frequency: 1-2 times per week. Amount used: 2 GRAMS. Age of first use: 12. Date of Last Use: 07/06/17 Medical History: Asthma, hypertension, diabetes, Gallstones, cholecystectomy in 2011. Psychiatric History: Pt. denies h/o psychiatric hospitalizations. As per previous visit on 06/03/17 patient was seen by curriculum writer. Pt. reported multiple failed trials of antidepressants. In 2015 her PCP prescribed her wellbutrin and effexor but did not find medications effective. In 2017, patient saw an outpatient psychiatrist who prescribed her paxil 20mg but patient was medication noncompliant. Pt. reports admission to rehab at [facility] on 06/2017. States she was diagnosed with Bipolar disorder and was prescribed Depakote 250 BID, Seroquel 100mg PO daily + Seroquel 400qhs. Pt. reports medication adherence but has been out of medications for five days. Pt. denies h/o suicide attempts. Pt. requesting to resume/restart her medications. Physical/Sexual Abuse/Trauma History: Denies. Mental Status Exam - Mental Status Exam Alert and Oriented to: Time, Place, Person Cognitive Function: Good Patient Appearance: Unkempt Mood: Hopeful Affect: Mood Congruent Patient Behavior: Appropriate, Cooperative Speech Pattern: Clear, Appropriate Voice Loudness: Normal Thought Process: Goal Oriented Thought Disorder: Not Present Hallucinations: Denies Suicidal Ideation: Denies Homicidal Ideation: Denies Insight/Judgement: Poor Sleep: Poorly Appetite: Fair Muscle strength/Tone: Normal Gait/Station: Normal Psychiatric Findings - Problem List ([place] 1, 2,3) (1) Bipolar disorder Current Visit: Yes Status: Chronic Comment: History. Recently diagnosed on at [facility] while on Rehab unit. (2) Alcohol dependence with uncomplicated withdrawal Current Visit: Yes Status: Acute (3) Cocaine dependence, uncomplicated Current Visit: Yes Status: Acute - Initial Treatment Plan Initial Treatment Plan: Psychoeducation provided. Depakote 250mg BID, Seroquel 50mg PO daily (reduce dosage. will tirate to 100mg), Seroquel 200mg qhs (will titrate back to 400mg if patient is able to tolerate daily increase). Pt. agreeable with plan. Benefits and side effects discussed. Verbal consent given. Will continue to monitor.
[2017-07-10 11:04] LABS: ALBUMIN 3.1 g/dl (3.4-5.0); CHLORIDE 103 mmol/L (98-107); POTASSIUM 3.9 mmol/L (3.5-5.1); SODIUM 140 mmol/L (136-145)
[2017-07-10 11:14] LABS: ALK PHOS 79 U/L (45-117); ANION GAP 6 (8-16); BILIRUBIN,TOTAL 0.6 mg/dL (0.2-1.0); BLOOD UREA NITROGEN 14 mg/dL (7-18); CALCIUM 8.3 mg/dL (8.5-10.1); CO2 31 mmol/L (21-32); CREATININE 0.8 mg/dL (0.55-1.02); GLUCOSE,RANDOM 101 mg/dL (74-106); SGOT/AST 40 U/L (15-37); SGPT/ALT 51 U/L (12-78); TOT PROT 6.3 g/dl (6.4-8.2)
--- NOTE | 2017-07-10 11:44 | EKG ---
Test Reason : Blood Pressure : / mmHG Vent. Rate : 102 BPM Atrial Rate : 102 BPM P-R Int : 124 ms QRS Dur : 086 ms QT Int : 362 ms P-R-T Axes : 042 051 018 degrees QTc Int : 471 ms SINUS TACHYCARDIA OTHERWISE NORMAL ECG WHEN COMPARED WITH ECG OF 03-JUN-2017 14:29, NONSPECIFIC T WAVE ABNORMALITY, WORSE IN ANTERIOR LEADS Confirmed by MOLLY LOUIS MD ([id number]) on 07/10/2017 11:43:56 AM Referred By: Confirmed By:MOLLY LOUIS MD
[2017-07-10] MEDS: ALBUTEROL SO4 18 GM HFA INHALER IH PRN (17:32)
[2017-07-10] MEDS ORDERED: QUEtiapine FUMARATE 200 MG TABLET PO SCH (22:00)
[2017-07-10] MEDS: DIVALPROEX SODIUM 250 MG TABLET E.C. (FP) PO SCH (22:29)
[2017-07-10] MEDS: THIAMINE HCL 100 MG TABLET (FP) PO SCH (22:29)
[2017-07-11] MEDS: chlordiazePOXIDE HCL 25 MG CAPSULE PO SCH ×2 (05:48→10:33)
[2017-07-11] MEDS: BACITRACIN 0.9 GM PACKET TP SCH ×2 (10:33→22:41)
[2017-07-11] MEDS: QUEtiapine FUMARATE 50 MG TABLET PO SCH (10:33)
[2017-07-11] MEDS: PRENATAL VITAMINS W/ FOLIC ACID TABLET (FP) PO SCH (10:33)
[2017-07-11] MEDS: DIVALPROEX SODIUM 250 MG TABLET E.C. (FP) PO SCH ×2 (10:33→22:42)
[2017-07-11] MEDS ORDERED: NICOTINE POLACRILEX 2 MG GUM BUC PRN (10:52)
--- NOTE | 2017-07-11 10:59 | PN ---
S CIWA - CIWA Score Nausea/Vomitin Muscle Tremors: 3 Anxiety: 3 Agitation: 2 Paroxysmal Sweats: 1-Minimal Palms Moist Orientation: 0-Oriented Tacttile Disturbances: 1-Very Mild Itch/Numbness Auditory Disturbances: 1-Very Mild Visual Disturbances: 0-None Headache: 2-Mild CIWA-Ar Total Score: 16 BHS Progress Note (SOAP) Subjective: ALERT,IRRITABLE,ANXIOUS,INTERRUPTED SLEEP,TREMOR Objective: 07/11/17 10:57 Vital Signs Temperature 97.3 F L 07/11/17 09:56 Pulse Rate 68 07/11/17 09:56 Respiratory Rate 18 07/11/17 09:56 Blood Pressure 145/96 07/11/17 09:56 O2 Sat by Pulse Oximetry (%) 07/11/17 10:57 Laboratory Last Values WBC 6.6 K/mm3 (4.0-10.0) 07/10/17 07:00 RBC 4.17 M/mm3 (3.60-5.2) 07/10/17 07:00 Hgb 12.8 GM/dL (10.7-15.3) 07/10/17 07:00 Hct 38.6 % (32.4-45.2) 07/10/17 07:00 MCV 92.5 fl (80-96) 07/10/17 07:00 MCH 30.7 pg (25.7-33.7) 07/10/17 07:00 MCHC 33.1 g/dl (32.0-36.0) 07/10/17 07:00 RDW 15.0 % (11.6-15.6) 07/10/17 07:00 Plt Count 222 K/MM3 (134-434) D 07/10/17 07:00 MPV 7.4 fl (7.5-11.1) L 07/10/17 07:00 Sodium 140 mmol/L (136-145) 07/10/17 07:00 Potassium 3.9 mmol/L (3.5-5.1) 07/10/17 07:00 Chloride 103 mmol/L (98-107) 07/10/17 07:00 Carbon Dioxide 31 mmol/L (21-32) 07/10/17 07:00 Anion Gap 6 (8-16) L 07/10/17 07:00 BUN 14 mg/dL (7-18) 07/10/17 07:00 Creatinine 0.8 mg/dL (0.55-1.02) 07/10/17 07:00 Creat Clearance w eGFR > 60 (>60) 07/10/17 07:00 Random Glucose 101 mg/dL (74-106) 07/10/17 07:00 Calcium 8.3 mg/dL (8.5-10.1) L 07/10/17 07:00 Total Bilirubin 0.6 mg/dL (0.2-1.0) 07/10/17 07:00 AST 40 U/L (15-37) H 07/10/17 07:00 ALT 51 U/L (12-78) 07/10/17 07:00 Alkaline Phosphatase 79 U/L (45-117) 07/10/17 07:00 Total Protein 6.3 g/dl (6.4-8.2) L 07/10/17 07:00 Albumin 3.1 g/dl (3.4-5.0) L 07/10/17 07:00 Urine Color Yellow 07/09/17 20:00 Urine Appearance Cloudy 07/09/17 20:00 Urine pH 5.0 (5.0-8.0) 07/09/17 20:00 Ur Specific [place] 1.015 (1.001-1.035) 07/09/17 20:00 Urine Protein 1+ (NEGATIVE) H 07/09/17 20:00 Urine Glucose (UA) Negative (NEGATIVE) 07/09/17 20:00 Urine Ketones Negative (NEGATIVE) 07/09/17 20:00 Urine Blood Negative (NEGATIVE) 07/09/17 20:00 Urine Nitrite Negative (NEGATIVE) 07/09/17 20:00 Urine Bilirubin Negative (NEGATIVE) 07/09/17 20:00 Urine Urobilinogen 2.0 mg/dL (0.2-1.0) H 07/09/17 20:00 Ur Leukocyte Esterase Trace (NEGATIVE) 07/09/17 20:00 Urine WBC (Auto) 4 /hpf (3-5) 07/09/17 20:00 Urine RBC (Auto) 1 /hpf (0-3) 07/09/17 20:00 Ur Epithelial Cells Moderate /HPF (FEW) 07/09/17 20:00 Urine Mucus Rare 07/09/17 20:00 Valproic Acid 7.702 ug/ml (50-100) L 07/11/17 06:00 RPR Titer Nonreactive (NONREACTIVE) 07/10/17 07:00 Assessment: 07/11/17 10:58 WITHDRAWAL SYMPTOM Plan: CONTINUE DETOX,ENCOURAGE ORAL FLUID
[2017-07-11] MEDS: NICOTINE 14 MG/24 HOURS TOPICAL PATCH TD SCH (12:26)
--- NOTE | 2017-07-11 12:27 | PN ---
[facility] Progress Note Note: Psychiatric nurse practitioner note: Pt. able to tolerate Seroquel 200mg qhs. Before admission patient was prescribed Seroquel 100mg PO daily + Seroquel 400mg qhs. Pt. was off medications for approximately five days and requested to resume medications in hopes of titrating medications back to original dose. No c/o of oversedation or dizziness noted. Will increase Seroquel to 300mg qhs. No changes to be made to AM dose of seroquel 50mg at this time. Pt. agreeable with plan. Verbal consent given. Benefits and side effects reviewed. Will continue to monitor.
[2017-07-11] MEDS: hydrOXYzine PAMOATE 50 MG CAPSULE (FP) PO PRN (15:12)
[2017-07-11] MEDS: chlordiazePOXIDE 5 MG CAPSULE PO SCH ×2 (17:27→22:41)
[2017-07-11] MEDS: ALBUTEROL SO4 18 GM HFA INHALER IH PRN (17:28)
[2017-07-11] MEDS: THIAMINE HCL 100 MG TABLET (FP) PO SCH (22:41)
[2017-07-11] MEDS: QUEtiapine FUMARATE 300 MG TABLET PO SCH (22:41)
[2017-07-12] MEDS: hydrOXYzine PAMOATE 50 MG CAPSULE (FP) PO PRN ×3 (00:57→19:29)
[2017-07-12] MEDS: chlordiazePOXIDE 5 MG CAPSULE PO SCH ×2 (05:48→10:19)
[2017-07-12] MEDS: NICOTINE 14 MG/24 HOURS TOPICAL PATCH TD SCH (10:19)
[2017-07-12] MEDS: PRENATAL VITAMINS W/ FOLIC ACID TABLET (FP) PO SCH (10:19)
[2017-07-12] MEDS: QUEtiapine FUMARATE 50 MG TABLET PO SCH (10:19)
[2017-07-12] MEDS: BACITRACIN 0.9 GM PACKET TP SCH ×2 (10:19→22:33)
[2017-07-12] MEDS: DIVALPROEX SODIUM 250 MG TABLET E.C. (FP) PO SCH ×2 (10:19→22:33)
--- NOTE | 2017-07-12 11:33 | PN ---
S Progress Note (SOAP) Subjective: ALERT,INTERRUPTED SLEEP,PAIN IN THE BODY Objective: 07/12/17 11:32 Vital Signs Temperature 97.2 F L 07/12/17 11:29 Pulse Rate 75 07/12/17 11:29 Respiratory Rate 20 07/12/17 11:29 Blood Pressure 144/108 07/12/17 11:29 O2 Sat by Pulse Oximetry (%) Assessment: 07/12/17 11:33 WITHDRAWAL SYMPTOM Plan: CONTINUE DETOX,DISCHARGE IN AM
[2017-07-12] MEDS: chlordiazePOXIDE HCL 10 MG CAPSULE PO SCH ×2 (17:56→22:33)
[2017-07-12] MEDS: QUEtiapine FUMARATE 300 MG TABLET PO SCH (22:33)
[2017-07-12] MEDS: THIAMINE HCL 100 MG TABLET (FP) PO SCH (22:33)
[2017-07-13] MEDS: chlordiazePOXIDE HCL 10 MG CAPSULE PO SCH (05:32)
[2017-07-13] MEDS: BACITRACIN 0.9 GM PACKET TP SCH (09:24)
[2017-07-13] MEDS: PRENATAL VITAMINS W/ FOLIC ACID TABLET (FP) PO SCH (09:24)
[2017-07-13] MEDS: DIVALPROEX SODIUM 250 MG TABLET E.C. (FP) PO SCH (09:25)
[2017-07-13] MEDS: QUEtiapine FUMARATE 50 MG TABLET PO SCH (09:25)
--- NOTE | 2017-07-13 09:25 | DS ---
[facility] Detox Discharge Summary Admission Date: 07/09/17 Discharge Date: 07/13/17 - History Present History: Alcohol Dependence - Physical Exam Results Vital Signs: Vital Signs Temperature 97.5 F L 07/13/17 07:40 Pulse Rate 68 07/13/17 07:40 Respiratory Rate 20 07/13/17 07:40 Blood Pressure 126/81 07/13/17 07:40 O2 Sat by Pulse Oximetry (%) Pertinent Admission Physical Exam Findings: withdrawal sx Laboratory Last Values WBC 6.6 K/mm3 (4.0-10.0) 07/10/17 07:00 RBC 4.17 M/mm3 (3.60-5.2) 07/10/17 07:00 Hgb 12.8 GM/dL (10.7-15.3) 07/10/17 07:00 Hct 38.6 % (32.4-45.2) 07/10/17 07:00 MCV 92.5 fl (80-96) 07/10/17 07:00 MCH 30.7 pg (25.7-33.7) 07/10/17 07:00 MCHC 33.1 g/dl (32.0-36.0) 07/10/17 07:00 RDW 15.0 % (11.6-15.6) 07/10/17 07:00 Plt Count 222 K/MM3 (134-434) D 07/10/17 07:00 MPV 7.4 fl (7.5-11.1) L 07/10/17 07:00 Sodium 140 mmol/L (136-145) 07/10/17 07:00 Potassium 3.9 mmol/L (3.5-5.1) 07/10/17 07:00 Chloride 103 mmol/L (98-107) 07/10/17 07:00 Carbon Dioxide 31 mmol/L (21-32) 07/10/17 07:00 Anion Gap 6 (8-16) L 07/10/17 07:00 BUN 14 mg/dL (7-18) 07/10/17 07:00 Creatinine 0.8 mg/dL (0.55-1.02) 07/10/17 07:00 Creat Clearance w eGFR > 60 (>60) 07/10/17 07:00 Random Glucose 101 mg/dL (74-106) 07/10/17 07:00 Calcium 8.3 mg/dL (8.5-10.1) L 07/10/17 07:00 Total Bilirubin 0.6 mg/dL (0.2-1.0) 07/10/17 07:00 AST 40 U/L (15-37) H 07/10/17 07:00 ALT 51 U/L (12-78) 07/10/17 07:00 Alkaline Phosphatase 79 U/L (45-117) 07/10/17 07:00 Total Protein 6.3 g/dl (6.4-8.2) L 07/10/17 07:00 Albumin 3.1 g/dl (3.4-5.0) L 07/10/17 07:00 Urine Color Yellow 07/09/17 20:00 Urine Appearance Cloudy 07/09/17 20:00 Urine pH 5.0 (5.0-8.0) 07/09/17 20:00 Ur Specific [place] 1.015 (1.001-1.035) 07/09/17 20:00 Urine Protein 1+ (NEGATIVE) H 07/09/17 20:00 Urine Glucose (UA) Negative (NEGATIVE) 07/09/17 20:00 Urine Ketones Negative (NEGATIVE) 07/09/17 20:00 Urine Blood Negative (NEGATIVE) 07/09/17 20:00 Urine Nitrite Negative (NEGATIVE) 07/09/17 20:00 Urine Bilirubin Negative (NEGATIVE) 07/09/17 20:00 Urine Urobilinogen 2.0 mg/dL (0.2-1.0) H 07/09/17 20:00 Ur Leukocyte Esterase Trace (NEGATIVE) 07/09/17 20:00 Urine WBC (Auto) 4 /hpf (3-5) 07/09/17 20:00 Urine RBC (Auto) 1 /hpf (0-3) 07/09/17 20:00 Ur Epithelial Cells Moderate /HPF (FEW) 07/09/17 20:00 Urine Mucus Rare 07/09/17 20:00 Valproic Acid 7.702 ug/ml (50-100) L 07/11/17 06:00 RPR Titer Nonreactive (NONREACTIVE) 07/10/17 07:00 lab noted - Treatment Hospital Course: Detox Protocol Followed, Detoxed Safely, Responded well, Discharged Condition Good, Rehab Referral Accepted Patient has Accepted a Rehab Referral to: [facility] - Medication Discharge Medications: Ambulatory Orders Albuterol Sulfate Inhaler - [Ventolin HFA Inhaler -] 2 inh PO Q4H PRN #1 inhaler 07/12/17 Divalproex [Depakote -] 250 mg PO BID #60 tablet.ec 07/13/17 Quetiapine Fumarate [Seroquel -] 50 mg PO DAILY #30 tablet 07/13/17 Quetiapine Fumarate [Seroquel -] 300 mg PO HS #30 tablet 07/13/17 - Diagnosis (1) Asthma Current Visit: Yes Status: Chronic Qualifiers: Asthma severity: mild Asthma complication type: with status asthmaticus (2) Alcohol dependence with uncomplicated withdrawal Current Visit: Yes Status: Acute (3) Bipolar disorder Current Visit: Yes Status: Suspected Qualifiers: Active/Remission status: in partial remission Most recent bipolar episode type: mixed Qualified Code(s): F31.77 - Bipolar disorder, in partial remission , most recent episode mixed - AMA Did Patient Leave Against Medical Advice: No
[2017-07-13] MEDS: NICOTINE 14 MG/24 HOURS TOPICAL PATCH TD SCH (09:26)
[2017-07-13 10:31] VITALS: BP 145/106; PULSE 85; TEMP 96.6
== END 2017-07-13 09:37 | disposition home or self-care (01) | DRG 774 ==
LOC: YASAS 12:15 → Y6N 16:59
PROVIDERS: ADMIT Internal Medicine; ATTEND Internal Medicine
PROC: HZ2ZZZZ Detoxification Services for Substance Abuse Treatment (ICD-10-PCS; principal; 2017-07-09)
DX: F10.230 Alcohol dependence with withdrawal, uncomplicated (principal); F14.20 Cocaine dependence, uncomplicated; F12.20 Cannabis dependence, uncomplicated; F17.210 Nicotine dependence, cigarettes, uncomplicated; F31.77 Bipolar disorder, in partial remission, most recent episode mixed; I10 Essential (primary) hypertension; J45.22 Mild intermittent asthma with status asthmaticus; G47.00 Insomnia, unspecified; R00.0 Tachycardia, unspecified
CPT/HCPCS: 36415; 80053; 80164; 81003; 81015; 85027; 86593; 93005; 93010